=== PATIENT | female | born 1990 | race Caucasian/White ===

== ENCOUNTER 2019-02-06 16:36 | Emergency (ER) | payer BC ==
--- NOTE | 2019-02-06 17:29 | EDM.PDOC ---
ED HPI GENERAL MEDICAL PROBLEM - General Chief Complaint: General Stated Complaint: NEEDS MEDICATION REFILL Time Seen by Provider: 02/06/19 16:51 Source of Information: Reports: Patient, RN Notes Reviewed History Limitations: Reports: No Limitations - History of Present Illness INITIAL COMMENTS - FREE TEXT/NARRATIVE: Patient is a 28-year-old female who presents to the ED for evaluation of a medication refill. The patient states that she recently moved to the area 2 months ago, and realized that she was going to be running out of medication. She notes that she ran out yesterday, she states she has not been able to get in to see a psychiatrist until February 12. Patient states that she did have a Telepsych conference, but was currently driving at that time, crossed into [place], and the psychiatrist stated he would not give her any medications, as he was not licensed in [place] apparently. Patient notes she takes Trileptal 450 mg daily, and Effexor 750 mg daily. Patient has no other complaints or concerns other than she cannot be off of her medications due to side effects. - Related Data Allergies Allergy/AdvReac Type Severity Reaction Status Date / Time No Known Allergies Allergy Verified 02/06/19 16:45 Home Meds: Home Meds OXcarbazepine [Oxcarbazepine] 450 mg PO DAILY #45 tablet 02/06/19 [Rx] OXcarbazepine [Trileptal] 450 mg PO DAILY 02/06/19 [History] Venlafaxine [Effexor] 75 mg PO DAILY 02/06/19 [History] Venlafaxine [Effexor] 75 mg PO DAILY #30 tab 02/06/19 [Rx] Past Medical History Psychiatric History: Reports: Bipolar, Depression Social & Family History - Tobacco Use Smoking Status *Q: Never Smoker - Caffeine Use Caffeine Use: Reports: Coffee, Energy Drinks, Soda, Tea - Recreational Drug Use Recreational Drug Type: Reports: Marijuana/Hashish Other Recreational Drug Type: weekly ED ROS GENERAL - Review of Systems Review Of Systems: See Below Constitutional: Reports: No Symptoms HEENT: Reports: No Symptoms Respiratory: Reports: No Symptoms Cardiovascular: Reports: No Symptoms Endocrine: Reports: No Symptoms GI/Abdominal: Reports: No Symptoms : Reports: No Symptoms Musculoskeletal: Reports: No Symptoms Skin: Reports: No Symptoms Neurological: Reports: No Symptoms Psychiatric: Reports: Depression (history of bipolar depression). Denies: Hallucinations, Homicidal Ideation, Mood Lability, Suicidal Ideation ED EXAM, GENERAL - Physical Exam Exam: See Below Exam Limited By: No Limitations General Appearance: Alert, WD/WN, No Apparent Distress Eye Exam: Bilateral Eye: EOMI, Normal Inspection, PERRL Respiratory/Chest: No Respiratory Distress, Lungs Clear, Normal Breath Sounds, No Accessory Muscle Use, Chest Non-Tender Cardiovascular: Normal Peripheral Pulses, Regular Rate, Rhythm, No Murmur Peripheral Pulses: 3+: Radial (L), Radial (R) GI/Abdominal: Normal Bowel Sounds, Soft, Non-Tender, No Distention, No Mass Extremities: Normal Inspection, Normal Capillary Refill Neurological: Alert, Oriented, Normal Cognition, No Motor/Sensory Deficits Psychiatric: Normal Affect, Normal Mood Skin Exam: Warm, Dry, Intact, Normal Color, No Rash Course - Vital Signs Last Recorded V/S: Last Vital Signs Temp 95.6 F 02/06/19 16:48 Pulse 97 02/06/19 16:48 Resp 20 02/06/19 16:48 BP 137/81 02/06/19 16:48 Pulse Ox 97 02/06/19 16:48 - Re-Assessments/Exams Free Text/Narrative Re-Assessment/Exam: 02/06/19 17:55 Patient resents to the ED for evaluation of needing medications refilled. As this is her first time visit in the ER, and these are psychiatric medications, I do not feel that providing her with a month's supply would cause much concern. I did write her for 30 day supply for both meds, she states she is going to follow up with psychiatry on Feb 12, and that should be able to establish care at that point in time. Departure - Departure Time of Disposition: 17:28 Disposition: Home, Self-Care 01 Condition: Fair Clinical Impression: Encounter for medication refill - Discharge Information *PRESCRIPTION DRUG MONITORING PROGRAM REVIEWED*: No *COPY OF PRESCRIPTION DRUG MONITORING REPORT IN PATIENT CRISTIAN: No Prescriptions: OXcarbazepine [Oxcarbazepine] 450 mg PO DAILY #45 tablet Venlafaxine [Effexor] 75 mg PO DAILY #30 tab Instructions: Medicine Refill at the Emergency Department Referrals: PCP,None [Primary Care Provider] - Forms: ED Department Discharge Additional Instructions: You were evaluated in the ER today regarding the need to have your medications refilled. As these are psychiatric medications that would be unsafe for you to not have these. I did provide you with enough tablets until you can be seen by a psychiatrist and have your prescriptions looked after. These were electronically prescribed to the [place] [facility] located [facility]. Please return to the ED if your symptoms should change or worsen.
== END 2019-02-06 17:37 | disposition home or self-care (01) ==
LOC: JD.ED 16:36
DX: Z76.0 Encounter for issue of repeat prescription (principal); F32.9 Major depressive disorder, single episode, unspecified; Z79.899 Other long term (current) drug therapy
CPT/HCPCS: 99281

== ENCOUNTER 2020-01-16 15:34 | Emergency (ER) | payer BC ==
[2020-01-16] MEDS ORDERED: Fluorescein 1 MG Ophth Strip EYERT ONE (17:46)
[2020-01-16] MEDS ORDERED: Proparacaine 0.5% Ophth Soln 15 ML Bottle EYERT ONE (17:46)
[2020-01-16] MEDS ORDERED: Diphtheria,Pertussis(Acell),Tetanus Vaccine 0.5 ML Syringe IM ONE (17:46)
--- NOTE | 2020-01-16 18:44 | EDM.PDOC ---
ED HPI GENERAL MEDICAL PROBLEM - General Chief Complaint: Eye Problems Stated Complaint: RIGHT EYE INJURY Time Seen by Provider: 01/16/20 17:39 - History of Present Illness INITIAL COMMENTS - FREE TEXT/NARRATIVE: 29-year-old female presents to the emergency room with right eye irritation and a foreign body sensation. Patient was outside and must got some in her eye she rubbed her eye. And now she feels like there is some stuck underneath her upper eyelid. Patient is unsure of her last tetanus shot. Her eye is watery difficult for her to keep open. Right Eye Pain Score (Numeric/FACES): 6 - Related Data Allergies Allergy/AdvReac Type Severity Reaction Status Date / Time No Known Allergies Allergy Verified 01/16/20 15:43 Home Meds: Home Meds QUEtiapine [SEROquel] 25 mg PO BID PRN 01/16/20 [History] QUEtiapine [SEROquel] 50 mg PO BEDTIME 01/16/20 [History] buPROPion HCL [Bupropion Xl] 300 mg PO DAILY 01/16/20 [History] Past Medical History - Past Health History Medical/Surgical History: Denies Medical/Surgical History Psychiatric History: Reports: Bipolar, Depression Social & Family History - Family History Family Medical History: Noncontributory - Tobacco Use Smoking Status *Q: Never Smoker - Caffeine Use Caffeine Use: Reports: Coffee, Energy Drinks, Soda - Recreational Drug Use Recreational Drug Use: No ED ROS GENERAL - Review of Systems Review Of Systems: See Below Constitutional: Reports: No Symptoms HEENT: Reports: Eye Pain Respiratory: Reports: No Symptoms Cardiovascular: Reports: No Symptoms ED EXAM GENERAL W FULL EYE - Physical Exam Exam: See Below Exam Limited By: No Limitations General Appearance: Alert, Mild Distress (Watery eye from the irritation) Eye Exam: Right Eye: Conjunctival Injection, Corneal Abrasion, Bilateral Eye: Abnormal EOM, EOMI, Normal Fundi, Normal Inspection, PERRL Cornea Exam: Right: Corneal Abrasion (Vertical midline superficial abrasion), Examined with Flourescein Extraocular Movements: Bilateral: Intact Pupils: Normal Accommodation Anterior Chamber: Bilateral: Normal Appearance Posterior Chamber: Bilateral: Normal Funduscopic Respiratory/Chest: No Respiratory Distress, Lungs Clear, Normal Breath Sounds Cardiovascular: Regular Rate, Rhythm, No Edema, No Murmur Course - Vital Signs Last Recorded V/S: Last Vital Signs Temp 36.1 C 01/16/20 15:40 Pulse 84 01/16/20 15:40 Resp 18 01/16/20 15:40 BP 139/86 01/16/20 15:40 Pulse Ox 96 01/16/20 15:40 - Orders/Labs/Meds Orders: Active Orders 24 hr Category Date Time Status Vaccines to be Administered [RC] PER UNIT ROUTINE Care 01/16/20 17:50 Active Meds: Medications Discontinued Medications Generic Name Dose Route Start Last Admin Trade Name Christina PRN Reason Stop Dose Admin Diphtheria/Tetanus/Acell Pertussis 0.5 ml 01/16/20 17:46 01/16/20 18:13 Adacel IM 01/16/20 17:47 0.5 ml .ONCE ONE Administration Fluorescein Sodium 1 mg 01/16/20 17:46 01/16/20 18:14 Ful-Sheila EYERT 01/16/20 17:47 1 mg ONETIME ONE Administration Proparacaine HCl 0.1 ml 01/16/20 17:46 01/16/20 18:14 Proparacaine 0.5% Ophth Soln EYERT 01/16/20 17:47 1 drop ONETIME ONE Administration - Re-Assessments/Exams Free Text/Narrative Re-Assessment/Exam: 01/16/20 18:44 Tetanus updated she has a superficial corneal abrasion right eye Departure - Departure Time of Disposition: 18:45 Disposition: Home, Self-Care 01 Clinical Impression: Corneal abrasion, right - Discharge Information Referrals: PCP,None [Primary Care Provider] - Additional Instructions: Return to the emergency room with any questions problems or worsening symptoms. Use the pain medication only as needed for eye pain 1 or 2 every 4-6 hours. Allow 12 hours after using this medication before driving or returning to work. Use the erythromycin ointment 1/2 inch behind your lower eyelid every 3 hours or so while awake. If you are still having problems in the morning follow-up with an eye doctor. Sepsis Event Note (ED) - Evaluation Sepsis Screening Result: No Definite Risk - Focused Exam Vital Signs: Vital Signs Temp Pulse Resp BP Pulse Ox 01/16/20 15:40 36.1 C 84 18 139/86 96 - My Orders Last 24 Hours: My Active Orders 01/16/20 17:50 Vaccines to be Administered [RC] PER UNIT ROUTINE - Assessment/Plan Last 24 Hours: My Active Orders 01/16/20 17:50 Vaccines to be Administered [RC] PER UNIT ROUTINE
[2020-01-16] MEDS ORDERED: Erythromycin Base 0.5% Ophth Oint 1 GM Tube EYERT ONE (18:47)
== END 2020-01-16 19:10 | disposition home or self-care (01) ==
LOC: JD.ED 15:34
DX: S05.01XA Injury of conjunctiva and corneal abrasion without foreign body, right eye, initial encounter (principal); F31.9 Bipolar disorder, unspecified; Z23 Encounter for immunization; Z79.899 Other long term (current) drug therapy; X58.XXXA Exposure to other specified factors, initial encounter
CPT/HCPCS: 90471; 90715; 99283; A9270

== ENCOUNTER 2020-03-20 17:22 | Emergency (ER) | payer BC ==
--- NOTE | 2020-03-20 18:09 | EDM.PDOC ---
ED HPI GENERAL MEDICAL PROBLEM - General Chief Complaint: Laceration Stated Complaint: R HAND LAC Time Seen by Provider: 03/20/20 17:35 Source of Information: Reports: Patient, RN Notes Reviewed - History of Present Illness INITIAL COMMENTS - FREE TEXT/NARRATIVE: 29 yr old female suffered dog bite injury R middle finger a short time ago. Her 2 large dogs were fighting, she tried to break it up and did get bit middle finger of R hand. Dogs are up to date with rabies vaccinations. - Related Data Allergies Allergy/AdvReac Type Severity Reaction Status Date / Time No Known Allergies Allergy Verified 03/20/20 17:36 Home Meds: Home Meds QUEtiapine [SEROquel] 25 mg PO BID PRN 01/16/20 [History] QUEtiapine [SEROquel] 50 mg PO BEDTIME 01/16/20 [History] buPROPion HCL [Bupropion Xl] 300 mg PO DAILY 01/16/20 [History] Amoxicillin/Potassium Clav [Augmentin 875-125 Tablet] 1 each PO BID #14 tablet 03/20/20 [Rx] Hydrocodone/Acetaminophen [[place] 5-325 Tablet] 1 each PO Q6HR PRN #10 tablet 03/20/20 [Rx] Past Medical History - Past Health History Medical/Surgical History: Denies Medical/Surgical History Psychiatric History: Reports: Bipolar, Depression Social & Family History - Family History Family Medical History: No Pertinent Family History - Tobacco Use Tobacco Use Status *Q: Never Tobacco User - Caffeine Use Caffeine Use: Reports: Coffee, Energy Drinks, Soda - Recreational Drug Use Recreational Drug Use: No ED ROS GENERAL - Review of Systems Review Of Systems: See Below Constitutional: Reports: No Symptoms HEENT: Reports: No Symptoms Respiratory: Reports: No Symptoms Cardiovascular: Reports: No Symptoms GI/Abdominal: Reports: No Symptoms Musculoskeletal: Reports: Joint Pain (PIP joint of R middle finger) Skin: Reports: Other (lac injuries PIP of R index finger) Neurological: Reports: Numbness (chronic R middle finger from prior injury) ED EXAM, SKIN/RASH Exam: See Below General Appearance: Alert, No Apparent Distress Head: Atraumatic Neck: Supple Respiratory/Chest: No Respiratory Distress Extremities: Other (small 1/2 cm laceration dorsal aspect of PIP R middle finger, small 3/4 cm nongaping laceration PIP area volar aspect R middle finger, mild tenderness of the PIP joint area of finger, pain with flexion and extension) Neurological: Other (no focal weakness, sensation to touch decreased medial and lateral distal R middle finger(according to patient chronic from prior injury)) Skin: Warm, Dry Course - Vital Signs Last Recorded V/S: Last Vital Signs Temp 97.7 F 03/20/20 17:34 Pulse 108 H 03/20/20 17:34 Resp 16 03/20/20 17:34 BP 127/89 03/20/20 17:34 Pulse Ox 98 03/20/20 17:34 - Orders/Labs/Meds Orders: Active Orders 24 hr Category Date Time Status Fingers Third Digit Rt F7 [CR] Stat Exams 03/20/20 17:55 Taken - Re-Assessments/Exams Free Text/Narrative Re-Assessment/Exam: 03/20/20 18:44 X rays- no fx. Rx. laceration cleansed with NS. Sutures not clinically indicated, dorsal lac very mildly gaping, pulled together with dorsal ster istrips. Tube gauze pressure dressing applied. Discharge instr. as documented. Departure - Departure Time of Disposition: 18:24 Disposition: Home, Self-Care 01 Condition: Fair Clinical Impression: Dog bite of right hand Qualifiers: Encounter type: initial encounter Qualified Code(s): S61.451A - Open bite of right hand, initial encounter - Discharge Information Prescriptions: Amoxicillin/Potassium Clav [Augmentin 875-125 Tablet] 1 each PO BID #14 tablet Hydrocodone/Acetaminophen [[place] 5-325 Tablet] 1 each PO Q6HR PRN #10 tablet PRN Reason: Pain Instructions: Animal Bite, Adult, [id number], Wound Care, Adult Referrals: PCP,None [Primary Care Provider] - Forms: ED Department Discharge Additional Instructions: Laceration care instr. Augmentin 875 mg twice daily for 1 week or until gone. Take the Augmentin with food. Probiotic twice daily recomended when taking the augmentin. Tylenol for mild to moderate pain or hydrocodone if needed for severe pain. Prescriptions have been sent to [facility]. You also may cut the pain pills in half and take half a pain pill along with 500 mg tylenol for good benefit and less opiod side effects. Have rechecked any sign of infection. Sepsis Event Note (ED) - Evaluation Sepsis Screening Result: No Definite Risk - Focused Exam Vital Signs: Vital Signs Temp Pulse Resp BP Pulse Ox 03/20/20 17:34 97.7 F 108 H 16 127/89 98 - My Orders Last 24 Hours: My Active Orders 03/20/20 17:55 Fingers Third Digit Rt F7 [CR] Stat - Assessment/Plan Last 24 Hours: My Active Orders 03/20/20 17:55 Fingers Third Digit Rt F7 [CR] Stat
--- NOTE | 2020-03-21 08:31 | CR ---
Right third finger: 4 views of the right third finger were obtained. Comparison: No prior finger exam is available. Findings: Osseous: Joint spaces are maintained. No fracture, dislocation or other bony abnormality is appreciated. Soft tissues: Soft tissue swelling is seen. No acute foreign body is seen. Impression: 1. Soft tissue swelling. 2. No acute bony abnormality is appreciated. Diagnostic code #2
== END 2020-03-20 18:34 | disposition home or self-care (01) ==
LOC: JD.ED 17:22
DX: S61.252A Open bite of right middle finger without damage to nail, initial encounter (principal); F31.9 Bipolar disorder, unspecified; Z79.899 Other long term (current) drug therapy; W54.0XXA Bitten by dog, initial encounter
CPT/HCPCS: 73140-26-F7; 73140-F7; 99283